=== PATIENT | female | born 1945 | race Asian ===

== ENCOUNTER 2018-03-24 18:17 | Emergency (ER) | payer MEDICARE, MEDICAID ==
[~2018-03-24] VITALS: Ht 157.5 cm; Wt 54.5 kg
[~2018-03-24 18:17] MED LIST: AMLO-512 PO; MULT-1259 PO; VITAD1000 PO
[2018-03-24 21:58] VITALS: BP 141/88
== END 2018-03-24 22:25 | disposition home or self-care (01) ==
LOC: EMS 18:18
DX: I10 Essential (primary) hypertension (principal)
CPT/HCPCS: 99283

== ENCOUNTER 2018-10-27 12:39 | Emergency (ER) | payer MEDICARE, MEDICAID ==
[~2018-10-27] VITALS: Ht 154.9 cm; Wt 50.0 kg
[2018-10-27 13:09] VITALS: BP 144/70
[2018-10-27] MEDS ORDERED: ATOR10TA84 PO (13:15)
[2018-10-27] MEDS ORDERED: IBUPROFEN 400 MG TABLET PO ONE (15:45)
== END 2018-10-27 16:28 | disposition home or self-care (01) ==
LOC: EMS 12:39
DX: S52.511A Displaced fracture of right radial styloid process, initial encounter for closed fracture (principal); S52.611A Displaced fracture of right ulna styloid process, initial encounter for closed fracture; I10 Essential (primary) hypertension; W01.0XXA Fall on same level from slipping, tripping and stumbling without subsequent striking against object, initial encounter; Y93.89 Activity, other specified; Y92.89 Other specified places as the place of occurrence of the external cause; Y99.8 Other external cause status

== ENCOUNTER 2018-10-30 09:37 | Emergency (ER) | payer MEDICARE, MEDICAID ==
[~2018-10-30] VITALS: Ht 152.4 cm; Wt 63.6 kg
[~2018-10-30 09:37] MED LIST changes: +ATOR10TA84 PO
[2018-10-30 11:50] VITALS: BP 138/79
== END 2018-10-30 12:22 | disposition home or self-care (01) ==
LOC: EMS 09:38
DX: S52.501D Unspecified fracture of the lower end of right radius, subsequent encounter for closed fracture with routine healing (principal); S52.611D Displaced fracture of right ulna styloid process, subsequent encounter for closed fracture with routine healing; I10 Essential (primary) hypertension; X58.XXXD Exposure to other specified factors, subsequent encounter

== ENCOUNTER 2019-07-18 14:24 | Emergency (ER) | payer OTHER, MEDICARE, MEDICAID ==
[~2019-07-18] VITALS: Ht 152.4 cm; Wt 54.5 kg
[~2019-07-18 14:24] MED LIST changes: -AMLO-512 PO; +AMLO10TA7 PO; +CHOL100018 PO; -VITAD1000 PO
[2019-07-18] MEDS ORDERED: IOVERSOL 350 MG/ML 100 ML VIAL ONE (16:54)
[2019-07-18] MEDS ORDERED: SODIUM CHLORIDE 0.9% 100 ML ONE (16:55)
[2019-07-18] MEDS ORDERED: MORPHINE SULFATE 4 MG/ML SYRINGE IVP ONE (17:00)
[2019-07-18 17:21] LABS: BASOPHILS % (AUTO) 0.8 % (0.0-2.0); EOSINOPHILS % (AUTO) 1.8 % (1.0-6.0); HEMATOCRIT 43.7 % (36-46); HEMOGLOBIN 14.8 g/dL (12.0-16.0); LYMPHOCYTES # (AUTO) 2.5 K/uL (1.0-4.8); LYMPHOCYTES % (AUTO) 30.6 % (22.0-44.0); MEAN CORPUSCULAR HEMOGLOBIN 30.7 pg (26.0-34.0); MEAN CORPUSCULAR HGB CONC 33.9 G/dL (31.0-37.0); MEAN CORPUSCULAR VOLUME 91 fL (80-100); MONOCYTES # (AUTO) 0.6 K/uL (0.1-1.0); MONOCYTES % (AUTO) 7.4 % (2.0-9.0); NEUTROPHILS # (AUTO) 4.9 K/uL (1.8-7.7); NEUTROPHILS % (AUTO) 59.4 % (40.0-70.0); PLATELET COUNT (AUTO) 279 K/uL (150-450); RED BLOOD CELL COUNT(AUTO) 4.81 MIL/uL (4.00-5.20); RED CELL DISTRIBUTION WIDTH 13.8 % (11.5-14.5)
[2019-07-18 17:37] LABS: ANION GAP 11 mmol/L (8-16); APPEARANCE,URINE CLEAR (CLEAR); BILIRUBIN,URINE NEGATIVE (NEGATIVE); CALCIUM, TOTAL 8.7 mg/dL (8.8-10.5); CARBON DIOXIDE 26 mmol/L (22-29); CHLORIDE 103 mmol/L (98-107); CREATININE 0.74 mg/dL (0.60-1.30); GLUCOSE, URINE (UA) NEGATIVE (NEGATIVE); GLUCOSE,RANDOM 111 mg/dL (70-110); KETONES,URINE NEGATIVE (NEGATIVE); LEUKOCYTE ESTERASE ,URINE TRACE (NEGATIVE); NITRATE,URINE NEGATIVE (NEGATIVE); OCCULT BLOOD,URINE MODERATE (NEGATIVE); PH,URINE 6.5 (5.0-8.0); POTASSIUM 3.4 mmol/L (3.5-5.1); PROTEIN,URINE NEGATIVE (NEGATIVE); SODIUM SERUM 140 mmol/L (136-145); UREA NITROGEN, BLOOD 12 mg/dL (7-18)
[2019-07-18 17:43] LABS: GLOMERULAR FILTR. RATE CALC > 60 mL/min (>60)
[2019-07-18 17:44] LABS: ALANINE AMINOTRANSFERASE 31 U/L (12-78); ALBUMIN 3.8 g/dL (3.4-5.0); ALKALINE PHOSPHATASE 139 U/L (46-116); ASPARTATE AMINOTRANSFERASE 28 U/L (15-37); BILIRUBIN,TOTAL 0.4 mg/dL (0.1-1.0); LIPASE 209 U/L (73-393); TOTAL PROTEIN, SERUM 7.8 g/dL (6.4-8.2)
[2019-07-18 17:46] LABS: WBC,URINE 0-2 /HPF (0-5)
[2019-07-18 17:47] LABS: BACTERIA,URINE Rare /HPF (None Seen); CALCIUM OXALATE CRYSTALS,UR Few /LPF (None Seen); SQUAMOUS EPITHELIAL CELL,UR Rare /LPF (None Seen)
[2019-07-18] MEDS ORDERED: KETOROLAC TROMETHAMINE 30 MG/ML VIAL IVP ONE (19:30)
[2019-07-18 19:50] VITALS: BP 148/88
== END 2019-07-18 19:55 | disposition home or self-care (01) ==
LOC: EMS 14:36
DX: S20.212A Contusion of left front wall of thorax, initial encounter (principal); S30.1XXA Contusion of abdominal wall, initial encounter; I10 Essential (primary) hypertension; Z79.899 Other long term (current) drug therapy; V49.9XXA Car occupant (driver) (passenger) injured in unspecified traffic accident, initial encounter; Y93.89 Activity, other specified; Y92.89 Other specified places as the place of occurrence of the external cause; Y99.8 Other external cause status
CPT/HCPCS: 36415; 71046; 71260; 74177; 80053; 81001; 83690; 85025; 96374; 99285; J1885; J7050; Q9967; 72193; 74160; J2270

== ENCOUNTER 2023-08-27 07:42 | Emergency (ER) | payer MEDICARE, MEDICAID ==
[~2023-08-27] VITALS: Ht 153.7 cm; Wt 54.5 kg
[~2023-08-27 07:42] MED LIST changes: +AMLO-258 PO; -AMLO10TA7 PO; +ATOR10TA PO; -ATOR10TA84 PO
[2023-08-27] MEDS ORDERED: CALC-1038 PO (07:47)
[2023-08-27] MEDS ORDERED: ASCO100T12 PO (07:47)
[2023-08-27 07:48] VITALS: BP 115/66; PULSE 89; RESP 16; TEMP 97.9
[2023-08-27] MEDS ORDERED: IBUPROFEN 400 MG TABLET PO ONE (08:30)
[2023-08-27 08:36] LABS: BASOPHILS % (AUTO) 0.6 % (0.0-2.0); EOSINOPHILS % (AUTO) 0.3 % (1.0-6.0); HEMATOCRIT 42.3 % (36-46); HEMOGLOBIN 14.3 g/dL (12.0-16.0); LYMPHOCYTES # (AUTO) 1.2 K/uL (1.0-4.8); LYMPHOCYTES % (AUTO) 16.2 % (22.0-44.0); MEAN CORPUSCULAR HEMOGLOBIN 30.5 pg (26.0-34.0); MEAN CORPUSCULAR HGB CONC 33.7 G/dL (31.0-37.0); MEAN CORPUSCULAR VOLUME 91 fL (80-100); MONOCYTES # (AUTO) 0.4 K/uL (0.1-1.0); MONOCYTES % (AUTO) 5.7 % (2.0-9.0); NEUTROPHILS # (AUTO) 5.5 K/uL (1.8-7.7); NEUTROPHILS % (AUTO) 77.2 % (40.0-70.0); PLATELET COUNT (AUTO) 290 K/uL (150-450); RED BLOOD CELL COUNT(AUTO) 4.67 MIL/uL (4.00-5.20); RED CELL DISTRIBUTION WIDTH 13.7 % (11.5-14.5); WHITE BLOOD COUNT (AUTO) 7.1 K/uL (4.5-11.0)
[2023-08-27 08:47] LABS: ANION GAP 8 mmol/L (8-16); CALCIUM, TOTAL 9.3 mg/dL (8.8-10.5); CARBON DIOXIDE 28 mmol/L (22-29); CHLORIDE 102 mmol/L (98-107); CREATININE 0.69 mg/dL (0.60-1.30); GLOMERULAR FILTR. RATE CALC > 60 mL/min (>60); GLUCOSE,RANDOM 103 mg/dL (70-110); POTASSIUM 3.9 mmol/L (3.5-5.1); SODIUM SERUM 138 mmol/L (136-145); UREA NITROGEN, BLOOD 13 mg/dL (7-18)
[2023-08-27 09:30] LABS: APPEARANCE,URINE CLEAR (CLEAR); BILIRUBIN,URINE NEGATIVE (NEGATIVE); COLOR,URINE YELLOW (YELLOW); GLUCOSE, URINE (UA) NEGATIVE (NEGATIVE); KETONES,URINE NEGATIVE (NEGATIVE); LEUKOCYTE ESTERASE ,URINE TRACE (NEGATIVE); NITRATE,URINE NEGATIVE (NEGATIVE); OCCULT BLOOD,URINE TRACE (NEGATIVE); PH,URINE 5.5 (5.0-8.0); PROTEIN,URINE TRACE mg/dL (NEGATIVE); SPECIFIC GRAVITIY, URINE 1.024 (1.003-1.030); UROBILINOGEN,URINE <=1.0 mg/dL (<=1.0)
[2023-08-27 09:42] LABS: BACTERIA,URINE None Seen /HPF (None Seen); RBC,URINE 0-2 /HPF (0-2); SQUAMOUS EPITHELIAL CELL,UR Few /LPF (None Seen); WBC,URINE None Seen /HPF (0-5)
[2023-08-27] MEDS ORDERED: CYCL-448 PO (10:03)
[2023-08-27] MEDS ORDERED: IBUP-1506 PO (10:03)
== END 2023-08-27 10:34 | disposition home or self-care (01) ==
LOC: EMS 07:43
DX: R10.9 Unspecified abdominal pain (principal); I10 Essential (primary) hypertension
CPT/HCPCS: 74176; 80048; 81001; 85025; 99284